=== PATIENT | female | born 1980 | race Asian ===

== ENCOUNTER 2022-09-13 11:24 | Emergency (ER) | payer BC, SELFPAY ==
--- NOTE | ~2022-09-13 | XR_ITS ---
EXAMINATION: XR wrist RT min 3V INDICATION: Right wrist pain TECHNIQUE: Right COMPARISON: None available FINDINGS: No fracture, dislocation, or subluxation. The bones, soft tissues, and joint spaces are nor mal. IMPRESSION: 1. No acute osseous abnormality. Reviewed, dictated and finalized at location B. 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
[2022-09-13 12:07] VITALS: BP 104/80; PULSE 70; RESP 18; TEMP 36.8; O2SAT 99
--- NOTE | 2022-09-13 12:52 | ED.GENADULT ---
HPI - General Adult General Chief complaint: Extremity Injury, Upper Stated complaint: Hurt right wrist at work Time Seen by Provider: 09/13/22 11:54 Source: RN notes reviewed History of Present Illness HPI narrative: Patient presents emergency department from home for right wrist pain. Patient states that she works at [employer] and does a large amount of heavy lifting she states she began to notice pain in her right wrist approximately 3 days ago. The pain is located over the dorsal aspect of the right wrist just proximal to the distal radius pain is worse with extension of the wrist and movement of the wrist she states that she did take some ibuprofen yesterday as well as use an Blake wrap with mild relief she denies any direct trauma or injury she denies any numbness or tingling of the extremities Related Data Allergies Allergy/AdvReac Type Severity Reaction Status Date / Time No Known Allergies Allergy Unverified 09/24/11 12:36 Review of Systems Review of Systems: Gen.: Denies fevers or chills Musculoskeletal: See HPI Neuro: Denies numbness, tingling, weakness Skin: Denies rash Endo: Denies DM PMFSH Past Medical History Medical History (Updated 09/13/22 @ 12:57 by Jose Wilcox DO) Patient denies significant medical history Social History Social History (Updated 09/13/22 @ 12:55 by Jose Wilcox DO) Smoking status: Never smoker Exam Narrative: APPEARANCE: No acute distress, nontoxic, resting in bed Eyes: EOMI HEENT: Normocephalic, atraumatic, RESPIRATORY: No respiratory distress MUSCULOSKELETAl: Tender palpation of the right dorsal wrist just proximal to the distal radius no swelling or ecchymosis pain with extension of the wrist no tenderness of the elbow full flexion-extension of all 5 MCP and IP joints, radial pulse 2+ neurovascular intact NEURO: Awake and alert. Following commands, speech normal, no focal deficits SKIN:: Warm, dry. Normal Color no rash or lesions Course Course Emergency Course: Discussed with patient results of workup and diagnosis. Discussed need for follow-up with primary care, proper use of medication, and reasons to return to the emergency department. Patient understands and agrees to current treatment plan Vital Signs Vital signs: Vital Signs Temperature 98.3 F 09/13/22 12:07 Pulse Rate 70 09/13/22 12:07 Respiratory Rate 18 09/13/22 12:07 Blood Pressure 104/80 09/13/22 12:07 Pulse Oximetry 99 09/13/22 12:07 Oxygen Delivery Room Air 09/13/22 12:07 Temperature 98.3 F 09/13/22 12:07 Pulse Rate 70 09/13/22 12:07 Respiratory Rate 18 09/13/22 12:07 Blood Pressure 104/80 09/13/22 12:07 Pulse Oximetry 99 09/13/22 12:07 Oxygen Delivery Room Air 09/13/22 12:07 Medical Decision Making MDM Narrative Medical decision making narrative: Patient?s injury is consistent with muscular skeletal etiology. No signs of neurologic or vascular compromise to exam. Compartments are soft without signs of compartment syndrome. Pain is consistent with exam and injury Vital Signs Vital Signs: Vital Signs Temperature 98.3 F 09/13/22 12:07 Pulse Rate 70 09/13/22 12:07 Respiratory Rate 18 09/13/22 12:07 Blood Pressure 104/80 09/13/22 12:07 Pulse Oximetry 99 09/13/22 12:07 Oxygen Delivery Room Air 09/13/22 12:07 Temperature 98.3 F 09/13/22 12:07 Pulse Rate 70 09/13/22 12:07 Respiratory Rate 18 09/13/22 12:07 Blood Pressure 104/80 09/13/22 12:07 Pulse Oximetry 99 09/13/22 12:07 Oxygen Delivery Room Air 09/13/22 12:07 Imaging Data Radiologist's impression: ITS Impressions Wrist X-Ray 09/13/22 12:28 IMPRESSION: 1. No acute osseous abnormality. Discharge Plan Discharge Clinical Impression: Right wrist sprain Patient Disposition: Home, Self-Care Condition: Stable Instructions: Antibiotic Form, Wrist Sprain (ED) Additional Instructions: Return for increasing pain n
== END 2022-09-13 13:12 | disposition home or self-care (01) ==
PROVIDERS: Emergency Provider Emergency Medicine
DX: S63.501A Unspecified sprain of right wrist, initial encounter (principal); X50.0XXA Overexertion from strenuous movement or load, initial encounter
CPT/HCPCS: 73110; 99283

== ENCOUNTER 2024-04-21 19:12 | Emergency (ER) | payer BC, SELFPAY ==
[2024-04-21 19:23] VITALS: BP 113/59; PULSE 86; RESP 20; TEMP 36.9; O2SAT 98
--- NOTE | 2024-04-21 19:33 | ED.GENADULT ---
HPI - General Adult General Chief complaint: Wound/Laceration Stated complaint: laceration, possible braces braket through skin Time Seen by Provider: 04/21/24 19:27 History of Present Illness HPI narrative: This is a 43-year-old female presenting with an abrasion to her upper lip. She was attempting to play soccer instep soccer ball tripped landing on her face. She has a small abrasion beneath her nose and she has some lacerations inside her upper lip. No other injuries. No loss of consciousness or blood thinners. Related Data Allergies Allergy/AdvReac Type Severity Reaction Status Date / Time No Known Allergies Allergy Unverified 04/21/24 19:29 [facility] Past Medical History Medical History Patient denies significant medical history Social History Social History Smoking status: Never smoker Exam Narrative: APPEARANCE: No apparent distress. Head: 1 x 1 cm superficial abrasion beneath nose. Small non repairable laceration to the inside of the upper lip from her braces. Teeth are on damage. EYES: EOMI, NOSE: Atraumatic NECK: Trachea midline RESPIRATORY: No increased rate of breathing CARDIOVASCULAR: RRR, ABDOMINAL: Non-distended MUSCULOSKELETAl: No obvious deformities NEURO: Alert. Moving 4/4 extremities SKIN:: Warm, dry. Normal color PSYCHIATRIC: Normal affect Course Vital Signs Vital signs: Vital Signs Temperature 98.4 F 04/21/24 19:23 Pulse Rate 86 04/21/24 19:23 Respiratory Rate 20 04/21/24 19:23 Blood Pressure 113/59 L 04/21/24 19:23 Pulse Oximetry 98 04/21/24 19:23 Oxygen Delivery Room Air 04/21/24 19:23 Temperature 98.4 F 04/21/24 19:23 Pulse Rate 86 04/21/24 19:23 Respiratory Rate 20 04/21/24 19:23 Blood Pressure 113/59 L 04/21/24 19:23 Pulse Oximetry 98 04/21/24 19:23 Oxygen Delivery Room Air 04/21/24 19:23 Medical Decision Making MDM Narrative Medical decision making narrative: -Course: 43-year-old female presenting with a minor fall with facial abrasion and a small laceration inside her lip. Wounds were cleansed. She was given Tdap, Motrin Tylenol. Discharged with primary care follow-up Vital Signs Vital Signs: Vital Signs Temperature 98.4 F 04/21/24 19:23 Pulse Rate 86 04/21/24 19:23 Respiratory Rate 20 04/21/24 19:23 Blood Pressure 113/59 L 04/21/24 19:23 Pulse Oximetry 98 04/21/24 19:23 Oxygen Delivery Room Air 04/21/24 19:23 Temperature 98.4 F 04/21/24 19:23 Pulse Rate 86 04/21/24 19:23 Respiratory Rate 20 04/21/24 19:23 Blood Pressure 113/59 L 04/21/24 19:23 Pulse Oximetry 98 04/21/24 19:23 Oxygen Delivery Room Air 04/21/24 19:23 Discharge Plan Discharge Clinical Impression: Abrasion, Laceration of buccal mucosa Patient Disposition: Home, Self-Care Condition: Stable Instructions: Antibiotic Form, Abrasion (ED) Additional Instructions: Please take Motrin Tylenol for pain. Follow-up with your doctor this year concerned about teeth. Return if you develop signs of infection Prescriptions: New acetaminophen 500 mg tablet 1,000 mg PO TID PRN (Reason: rylan) 7 Days Qty: 42 0RF ibuprofen 800 mg tablet 800 mg PO TID PRN (Reason: pain) 7 Days Qty: 21 0RF No Action ibuprofen 600 mg tablet 600 mg PO TID PRN (Reason: pain) Qty: 14 0RF Follow-up/Referrals: PHYSICIAN,PROCESS MOLD TECHNICIAN [Primary Care Provider] -
[2024-04-21] MEDS: IBUPROFEN 400 MG TABLET 800 MG PO (19:39)
[2024-04-21] MEDS: TETANUS,DIPHTHERIA,AC PERTUSSIS ADULT (0.5 ML) BOOSTRIX IM (20:20)
== END 2024-04-21 20:27 | disposition home or self-care (01) ==
LOC: ANHED 19:37
PROVIDERS: Emergency Provider Emergency Medicine; PCP Internal Medicine
DX: S01.512A Laceration without foreign body of oral cavity, initial encounter (principal); Z23 Encounter for immunization; W01.0XXA Fall on same level from slipping, tripping and stumbling without subsequent striking against object, initial encounter; Y93.66 Activity, soccer
CPT/HCPCS: 90471; 90715; 99283; A9270